=== PATIENT | male | born 1945 | race Two or more races ===

== ENCOUNTER 2023-04-05 07:45 | Inpatient (IN) | payer OTHER ==
[~2023-04-05] VITALS: Ht 175.3 cm; Wt 97.5 kg
[2023-05-05 11:17] LABS: PH,URINE 5.5 (5.0-8.0); URINE APPEARANCE Clear; URINE BILIRRUBIN Negative (NEGATIVE); URINE BLOOD Moderate; URINE COLOR Yellow; URINE GLUCOSE Negative (NEGATIVE); URINE LEUKOCYTE Negative; URINE NITRATE Negative; URINE PROTEIN Negative (NEGATIVE); URINE UROBILINOGEN 0.2 E.U./dl
[2023-05-05 11:18] LABS: HEMATOCRIT 39.2 % (39.0-48.0); HEMOGLOBIN 13.4 g/dL (13-16.00); MEAN CELL VOLUME 87.7 fL (80.0-100.00); MEAN CORPUSCULAR HEMOGLOBIN 29.9 pg (27.00-32.0); MEAN CORPUSCULAR HGB CONC 34.1 g/dl (32.0-36.0); PLATELET COUNT 162 K/uL (150-450); RED BLOOD COUNT 4.47 M/uL (4.00-6.00); RED CELL DISTRIBUTION WIDTH 14.9 % (11.5-14.5)
[2023-05-05 11:21] LABS: URINE RBC 117.6 uL (0.0-20.8)
[2023-05-05] MEDS ORDERED: TOPROL XL25 M1 (11:21)
[2023-05-05] MEDS ORDERED: ADULT LOW DOSE81 M1 (11:22)
[2023-05-05 11:34] LABS: URINE BACTERIA 2.5 uL (0.0-1933); URINE EPITHELIAL CELLS 0.9 uL (0.0-38.8); URINE WBC 0.9 uL (0.0-23.2)
[2023-05-05 11:41] LABS: PARTIAL THROMBOPLASTIN TIME 24.9 SECONDS (22.0-34.0); PROTHROMBIN TIME 10.5 SECONDS (9.0-11.5)
[2023-05-05 11:46] LABS: ALBUMIN 3.9 gm/dL (3.4-5.0); BILIRUBIN TOTAL 0.47 mg/dL (0.3-1.2); CALCIUM 8.7 mg/dL (8.5-10.1); CREATININE SERUM 0.9 mg/dL (0.70-1.30); GFR 81.61; GLOBULINA 3.6 G/DL (2.4-3.5); POTASSIUM 4.65 mEq/L (3.5-5.1); TOTAL PROTEIN 7.5 gm/dL (6.4-8.2)
[2023-05-09] MEDS ORDERED: PENTOXIFYLLINE400 MG (11:33)
[2023-05-09] MEDS ORDERED: TAMSULOSIN HCL0.4 MG (11:33)
[2023-05-09] MEDS ORDERED: CEFAZOLIN SODIUM 1,000 MG VIAL ONE (12:08)
[2023-05-09] MEDS ORDERED: ENALAPRILAT DIHYDRATE 1.25 MG/ML VIAL IV ONE ×2 (12:57→14:00)
[2023-05-09] MEDS ORDERED: BUPIVACAINE HCL/PF 0.5% 30ML ML ONE (13:16)
[2023-05-09] MEDS ORDERED: CEFAZOLIN SODIUM 1,000 MG VIAL IV ONE (13:45)
[2023-05-09] MEDS ORDERED: BUPIVACAINE HCL/PF 0.25% 30ML VIAL InF ONE (14:00)
[2023-05-09] MEDS ORDERED: POVIDONE-IODINE 3 EA MED..SWAB TOP ONE (14:07)
[2023-05-09] MEDS ORDERED: SUGAMMADEX SODIUM 200 MG/2 ML VIAL IV ONE ×2 (14:50→15:00)
[2023-05-09] MEDS ORDERED: POVIDONE-IODINE 0.75 OZ PACKET TOP ONE (15:00)
[2023-05-09] MEDS ORDERED: ONDANSETRON HCL 2 MG/ML VIAL IV PRN (15:30)
[2023-05-09] MEDS ORDERED: SODIUM CHLORIDE 0.45 % 1,000 ML IV SCH (15:30)
[2023-05-09] MEDS ORDERED: MORPHINE SULFATE 4 MG/ML CARTRIDGE IV PRN (15:30)
[2023-05-09] MEDS ORDERED: OxyCODONE HCL 5 MG TABLET (ROXICODONE) PO PRN (15:30)
[2023-05-09] MEDS ORDERED: CEFAZOLIN SODIUM 1,000 MG VIAL IV SCH (17:00)
[2023-05-09] MEDS ORDERED: GABAPENTIN 300 MG CAPSULE PO SCH (17:00)
[2023-05-10 07:01] LABS: HEMATOCRIT 38.6 % (39.0-48.0); HEMOGLOBIN 13.2 g/dL (13-16.00); MEAN CELL VOLUME 87.9 fL (80.0-100.00); MEAN CORPUSCULAR HGB CONC 34.1 g/dl (32.0-36.0); PLATELET COUNT 163 K/uL (150-450); RED BLOOD COUNT 4.39 M/uL (4.00-6.00); RED CELL DISTRIBUTION WIDTH 15.1 % (11.5-14.5)
[2023-05-10] MEDS ORDERED: PERCOCET 5-3251 EACH PO ×2 (08:01)
[2023-05-10] MEDS ORDERED: DUI500 PO ×2 (08:01)
[2023-05-10] MEDS ORDERED: SENNOSIDES 1 TAB TABLET PO SCH (09:00)
[2023-05-11] MEDS ORDERED: IRON FUM,PS/FOLIC ACID/VITC/B3 1 CAP CAPSULE PO SCH (09:00)
== END 2023-05-10 12:54 | disposition home or self-care (01) | DRG 483 ==
LOC: SURG 05-09 06:15 → O/R 05-09 06:15 → SURH 05-09 07:00 → SURG 05-09 17:18
PROVIDERS: ADMIT Orthopaedic Surgery; ATTEND Orthopaedic Surgery
PROC: 0LS30ZZ Reposition Right Upper Arm Tendon, Open Approach (ICD-10-PCS; 2023-05-09)
PROC: 0PUF0JZ Supplement Right Humeral Shaft with Synthetic Substitute, Open Approach (ICD-10-PCS; 2023-05-09)
PROC: 0RRJ00Z Replacement of Right Shoulder Joint with Reverse Ball and Socket Synthetic Substitute, Open Approach (ICD-10-PCS; principal; 2023-05-09 07:00)
DX: M19.011 Primary osteoarthritis, right shoulder (principal); M75.121 Complete rotator cuff tear or rupture of right shoulder, not specified as traumatic; M89.8X1 Other specified disorders of bone, shoulder; Z20.822 Contact with and (suspected) exposure to COVID-19

== ENCOUNTER 2023-05-10 12:47 | Emergency (ER) | payer OTHER ==
[~2023-05-10] VITALS: Ht 175.3 cm; Wt 52.2 kg
[~2023-05-10 12:47] MED LIST: ADULT LOW DOSE81 M1; DUI500 PO; PENTOXIFYLLINE400 MG; PERCOCET 5-3251 EACH PO; TAMSULOSIN HCL0.4 MG; TOPROL XL25 M1
[2023-05-10] MEDS ORDERED: KETOROLAC TROMETHAMINE 60 MG VIAL IM STA (13:24)
== END 2023-05-10 16:16 | disposition home or self-care (01) ==
LOC: ER 12:47
DX: S70.02XA Contusion of left hip, initial encounter (principal); S40.011A Contusion of right shoulder, initial encounter; W18.39XA Other fall on same level, initial encounter; Y93.89 Activity, other specified; Y92.488 Other paved roadways as the place of occurrence of the external cause; I10 Essential (primary) hypertension
CPT/HCPCS: 70450; 73020; 73501; 96372; 99284; J1885